=== PATIENT | male | born 1980 | race Caucasian/White ===

== ENCOUNTER 2016-10-23 13:04 | Day surgery (SDC) | payer MEDICAID ==
[2016-10-23] MEDS ORDERED: LIDOCAINE 1% 2 ML INJ ID PRN (13:24)
[2016-10-23] MEDS ORDERED: NS 500 ML IV SCH (13:30)
[2016-10-23] MEDS ORDERED: LIDOCAINE 1% 5 ML SDV ONE (13:43)
--- NOTE | 2016-10-23 14:59 | PDHPUP ---
History & Physical Update H&P update statement: This history and physical update is based on an assessment of the patient which was completed after admission or registration (within 24 hours), but prior to the surgery/procedure. H&P update: H&P reviewed & patient examined, no change in patient's condition since H&P completed
--- NOTE | 2016-10-23 14:59 | PDPROPOC ---
Sedation Plan of Care Sedation Plan of Care: vital signs stable, mental status noted, patient educated of risks, benefits, alternatives, patient can tolerate sedation ASA Classification: ASA 1 Mallampati Score: Class 1 332 Rule: 332
[2016-10-23] MEDS ORDERED: fentaNYL 100 MCG/2 ML INJ ONE (15:02)
[2016-10-23] MEDS ORDERED: MIDAZOLAM 2 MG/2 ML VIAL ONE (15:02)
[2016-10-23] MEDS ORDERED: BENZOCAINE UNIT DOSE SPRAY HURRICAINE MM ONE (15:15)
[2016-10-23 15:54] VITALS: RESP 15
--- NOTE | 2016-10-23 15:54 | POSTOPPROG ---
Post Op Note Date of Operation: 10/23/16 Surgeon: Roberth Hunter Anesthesia: IV Sedation Pre-op Diagnosis: Dysphagia Post-op Diagnosis: Esophageal strictures Inf/Abcess present in the surg proc area at time of surgery?: No EBL: Minimal
[2016-10-23 16:33] VITALS: O2SAT 92
[2016-10-23 16:36] VITALS: BP 127/82; PULSE 78; TEMP 97.7
--- NOTE | 2016-10-23 17:11 | GPN ---
[f rep st] PROCEDURE NOTE PROCEDURE: Gastroscopy with biopsies and Savary dilation. INDICATIONS: The patient is a 36-year-old male with longstanding history of dysphagia to solids. H e denies any significant reflux symptomatology. He has never had prior workup. Endoscopy is being performed to rule out stricturing disease. PROCEDURE: After proper consent was obtained, the patient placed in left lateral decubitus position . Received total of 8 mg of intravenous Versed and 200 mcg of intravenous fentanyl. Video gastroscope was introduced through the mouth, down the esophagus, into the stomach, past the p ylorus, into the duodenum. FINDINGS: 1. The esophagus had a corrugated pattern suggestive of eosinophilic esophagitis. No overt strictu res were noted. 2. Stomach appeared grossly normal. Biopsies were taken to rule out H pylori. 3. Duodenum appeared normal. A Savary wire was placed and then serial dilation was performed with dilators at 36, 39, 42, 45, 51 Romanian. The Savary assemblage was removed and then the gastroscope was replaced and modest dilation was note d of strictures at the EG junction and also in the high cervical esophagus. Biopsies were taken of both distal and proximal esophagus to rule out eosinophilic esophagitis. At this point, instrument was removed. Patient tolerated the procedure well. He was returned to [facility] recovery room in stable condition. RECOMMENDATIONS: 1. I will follow up the biopsy report and recommend accordingly. 2. The patient will start omeprazole 40 mg daily for the next month. 3. The patient will be on a clear liquid diet tonight, advanced as tolerated. /[id number]/MODL
== END 2016-10-23 16:23 | disposition home or self-care (01) ==
LOC: FSGY 13:04
PROVIDERS: ATTEND Internal Medicine Gastroenterology
PROC: 0D748ZZ Dilation of Esophagogastric Junction, Via Natural or Artificial Opening Endoscopic (ICD-10-PCS; principal; 2016-10-23 14:00)
PROC: 0DB38ZX Excision of Lower Esophagus, Via Natural or Artificial Opening Endoscopic, Diagnostic (ICD-10-PCS; principal; 2016-10-23 14:00)
PROC: 0D718ZZ Dilation of Upper Esophagus, Via Natural or Artificial Opening Endoscopic (ICD-10-PCS; principal; 2016-10-23 14:00)
PROC: 0DB18ZX Excision of Upper Esophagus, Via Natural or Artificial Opening Endoscopic, Diagnostic (ICD-10-PCS; principal; 2016-10-23 14:00)
DX: K22.2 Esophageal obstruction (principal); R13.10 Dysphagia, unspecified; Z98.890 Other specified postprocedural states; Z86.79 Personal history of other diseases of the circulatory system; Z82.49 Family history of ischemic heart disease and other diseases of the circulatory system; Z95.2 Presence of prosthetic heart valve; Z88.0 Allergy status to penicillin
CPT/HCPCS: J2250; J3010